=== PATIENT | female | born 1955 | race Asian ===

== ENCOUNTER 2023-02-27 08:55 | Emergency (ER) | payer MEDICAID ==
[~2023-02-27] VITALS: Ht 167.6 cm; Wt 68.0 kg
[2023-02-27 09:12] VITALS: BP_SYST 143; PULSE 72; RESP 19; TEMP 98; O2SAT 99
[2023-02-27] MEDS ORDERED: HYDROcodone/ACETAMIN 7.5-325 MG TAB PO ONE (09:15)
[2023-02-27] MEDS ORDERED: KETOROLAC TROMETHAMINE 60 MG/2 ML VIAL IM ONE (09:15)
[2023-02-27 10:06] LABS: BILIRUBIN,URINE NEGATIVE (NEGATIVE); BLOOD, URINE 1+ (NEGATIVE); CLARITY/URINE CLEAR (CLEAR); COLOR,URINE YELLOW (YELLOW); GLUCOSE,URINE NEGATIVE (NEGATIVE); KETONES,URINE NEGATIVE (NEGATIVE); LEUKOCYTE ESTERASE ,URINE 1+ (NEGATIVE); NITRITE, URINE NEGATIVE (NEGATIVE); PH,URINE 6.5 (5.0-8.0); PROTEIN URINE NEGATIVE (NEGATIVE); UROBILINOGEN,URINE 0.2 (0.2-1.0)
[2023-02-27 10:24] LABS: BACTERIA,URINE RARE /HPF (None Seen)
[2023-02-27] MEDS ORDERED: CEPH-548 PO (11:16)
[2023-02-27] MEDS ORDERED: IBUP-1969 PO (11:16)
[2023-02-27 11:24] VITALS: BP_SYST 143; PULSE 72; RESP 19; TEMP 98; O2SAT 99
== END 2023-02-27 11:24 | disposition home or self-care (01) ==
LOC: SED 08:55
DX: M41.9 Scoliosis, unspecified (principal); M54.6 Pain in thoracic spine; N39.0 Urinary tract infection, site not specified; I10 Essential (primary) hypertension; Z79.899 Other long term (current) drug therapy
CPT/HCPCS: 99284; 71045; 81001; 87086; 72080; 96372; 81000; 81015; J1885

== ENCOUNTER 2023-04-12 13:15 | Emergency (ER) | payer MEDICAID ==
[~2023-04-12] VITALS: Ht 152.4 cm; Wt 59.0 kg
[~2023-04-12 13:15] MED LIST: CEPH-548 PO; IBUP-1969 PO
[2023-04-12 14:08] VITALS: BP_SYST 148; PULSE 86; RESP 18; TEMP 97; O2SAT 97
[2023-04-12 15:11] LABS: BASOPHILS % (AUTO) 0.7 % (0.0-2.0); EOSINOPHILS # (AUTO) 0.1 K/uL (0.0-0.4); EOSINOPHILS % (AUTO) 2.3 % (0.0-4.0); HEMOGLOBIN 13.8 g/dL (12.0-16.0); LYMPHOCYTES # (AUTO) 2.1 K/uL (1.0-5.5); LYMPHOCYTES % (AUTO) 39.3 % (20.5-51.5); MEAN CORPUSCULAR HEMOGLOBIN 29 pg (27-31); MEAN CORPUSCULAR HGB CONC 35 % (32-36); MEAN CORPUSCULAR VOLUME 85 fL (79.0-98.0); MONOCYTES # (AUTO) 0.3 K/uL (0.0-1.0); NEUTROPHILS # (AUTO) 2.9 K/uL (1.8-7.7); NEUTROPHILS % (AUTO) 52.7 % (40.0-70.0); PLATELET COUNT (AUTO) 278 K/uL (130-430); RED BLOOD CELL COUNT(AUTO) 4.72 MIL/uL (4.2-6.2); RED CELL DISTRIBUTION WIDTH 12.6 % (9.0-15.0); WHITE BLOOD COUNT (AUTO) 5.4 K/uL (4.8-10.8)
[2023-04-12 15:27] LABS: BILIRUBIN,URINE NEGATIVE (NEGATIVE); BLOOD, URINE 2+ (NEGATIVE); COLOR,URINE YELLOW (YELLOW); GLUCOSE,URINE NEGATIVE (NEGATIVE); KETONES,URINE NEGATIVE (NEGATIVE); LEUKOCYTE ESTERASE ,URINE 2+ (NEGATIVE); NITRITE, URINE NEGATIVE (NEGATIVE); PH,URINE 5.5 (5.0-8.0); PROTEIN URINE NEGATIVE (NEGATIVE); UROBILINOGEN,URINE 0.2 (0.2-1.0)
[2023-04-12 15:33] LABS: PROTHROMBIN TIME 10.5 SECS (9.5-12.5)
[2023-04-12 15:33] LABS: CLARITY/URINE SLIGHTLY HAZY (CLEAR)
[2023-04-12 16:04] LABS: BACTERIA,URINE MODERATE /HPF (None Seen)
[2023-04-12 16:23] VITALS: BP_SYST 148; PULSE 86; RESP 18; TEMP 97; O2SAT 97
== END 2023-04-12 16:20 | disposition home or self-care (01) ==
LOC: SED 13:15
DX: N93.9 Abnormal uterine and vaginal bleeding, unspecified (principal); I10 Essential (primary) hypertension; Z79.899 Other long term (current) drug therapy
CPT/HCPCS: 36415; 76856-TC; 81000; 81001; 81015; 85025; 85610-TC; 85730-TC; 86886; 86900; 86901; 87086; 99284